=== PATIENT | male | born 1960 ===

== ENCOUNTER 2017-07-14 20:12 | Emergency (ER) | payer OTHER, BC ==
[2017-07-14 20:32] VITALS: BP 150/80; PULSE 79; RESP 18; TEMP 98.4; O2SAT 98
--- NOTE | 2017-07-14 20:46 | ED PDOC ---
HPI: Back Time Seen by Provider: 07/14/17 20:34 Chief Complaint (Nursing): Back Pain Chief Complaint (Provider): Low back pain History Per: Patient History/Exam Limitations: no limitations Onset/Duration Of Symptoms: Hrs Current Symptoms Are (Timing): Still Present Quality Of Discomfort: "Pain" Previous Symptoms: Chronic Pain, Prior Surgery Additional History Per: Patient Additional Complaint(s): 56yo male, with history of back problems, back surgeries and kidney stones, presents to ER for evaluation of right sided lower back pain after he injured himself while using a machine at work today. Patient states he has been taking Tylenol with no relief of symptoms. He states the pain intermittently radiates down his right leg as well. He denies any weakness, numbness, bowel or bladder dysfunction. No other complaints. Past Medical History Reviewed: Historical Data, Nursing Documentation, Vital Signs Vital Signs: Last Vital Signs Temp 98.4 F 07/14/17 20:30 Pulse 79 07/14/17 20:30 Resp 18 07/14/17 20:30 BP 150/80 07/14/17 20:30 Pulse Ox 98 07/14/17 20:30 - Medical History PMH: Back Problems - Surgical History Other surgeries: back surgery - Family History Family History: States: No Known Family Hx - Social History Current smoker - smoking cessation education provided: Yes Alcohol: Occasional Drugs: Denies - Home Medications Home Medications: Ambulatory Orders Medication Instructions Recorded Cyclobenzaprine [Cyclobenzaprine 10 mg PO TID PRN #20 tab 07/14/17 HCl] Naproxen [Naprosyn] 500 mg PO BID #20 tab 07/14/17 - Allergies Allergies/Adverse Reactions: Allergies Allergy/AdvReac Type Severity Reaction Status Date / Time No Known Allergies Allergy Verified 07/14/17 20:28 Review of Systems ROS Statement: Except As Marked, All Systems Reviewed And Found Negative Genitourinary Male: Negative for: Dysuria, Incontinence Musculoskeletal: Positive for: Back Pain (right lower back), Leg Pain ( intermittent episodes) Neurological: Negative for: Weakness, Numbness Physical Exam - Reviewed Nursing Documentation Reviewed: Yes Vital Signs Reviewed: Yes - Physical Exam Appears: Positive for: Non-toxic, No Acute Distress Head Exam: Positive for: ATRAUMATIC, NORMAL INSPECTION, NORMOCEPHALIC Skin: Positive for: Normal Color Eye Exam: Positive for: Normal appearance Neck: Positive for: Supple Cardiovascular/Chest: Positive for: Regular Rate, Rhythm. Negative for: Murmur Respiratory: Positive for: Normal Breath Sounds. Negative for: Respiratory Distress Back: Positive for: Muscle Spasm (right lower back), Other (right paralumbar tenderness). Negative for: L CVA Tenderness, R CVA Tenderness Extremity: Positive for: Normal ROM Neurologic/Psych: Positive for: Alert, Oriented. Negative for: Motor/Sensory Deficits - ECG O2 Sat by Pulse Oximetry: 98 (RA) Pulse Ox Interpretation: Normal - Other Rad L/S Spine x-ray X-Ray: Interpreted by Me, Viewed By Me X-Ray Interpretation: no fx, no dis, arthritic changes Medical Decision Making Medical Decision Making: Impression: Back pain s/p injury Plan: -- Flexeril 10 mg PO -- XR Lumbar Spine -- Tylenol 975 mg PO -- Tordaol 30 mg IM Patient feels better after meds given in ED. Will d/c with rx flexeril and naprosyn. Patient was referred to ortho precision lens technician for follow up. Scribe Attestation: Documented by Patricia Guthrie acting as a scribe for RADHA Brown Provider Attestation: All medical record entries made by the Scribe were at my direction and personally dictated by me. I have reviewed the chart and agree that the record accurately reflects my personal performance of the history, physical exam, medical decision making, and the department course for this patient. I have also personally directed, reviewed, and agree with the discharge instructions and disposition. Disposition - Clinical Impression Clinical Impression: Back strain - Patient ED Disposition Is Patient to be Admitted: No Counseled Patient/Family Regarding: Studies Performed, Diagnosis, Need For Followup, Rx Given - Disposition Referrals: Rama Elkins MD [Staff Provider] - Disposition: Routine/Home Disposition Time: 21:32 Condition: STABLE Additional Instructions: TAKE RX MEDS DIRECTED NEEDED FOR PAIN FOLLOW UP WITH ORTHOPEDIST IN 2-3 DAYS. Prescriptions: Cyclobenzaprine [Cyclobenzaprine HCl] 10 mg PO TID PRN #20 tab PRN Reason: Muscle Spasm Naproxen [Naprosyn] 500 mg PO BID #20 tab Instructions: Low Back Pain (DC), Muscle Strain (DC), Back Exercises Forms: [facility] (Gu[place]ian), [facility] School/Work Excuse Print Language: CUBAN
--- NOTE | 2017-07-15 09:58 | RAD ---
PROCEDURE: Radiographs of the Lumbar Spine. HISTORY: trauma COMPARISON: No prior. FINDINGS: BONES: Normal alignment. No listhesis. No fracture. Anterior endplate osteophytic changes. DISC SPACES: Multilevel disc space narrowing. OTHER FINDINGS: Large staghorn left renal calculus. Adjacent small right lower pole renal calculi. IMPRESSION: No acute fracture. Multilevel degenerative changes. Bilateral nephrolithiasis, including large left staghorn calculus.
== END 2017-07-14 22:12 | disposition home or self-care (01) ==
LOC: H.ER 20:12
DX: S39.012A Strain of muscle, fascia and tendon of lower back, initial encounter (principal); X50.9XXA Other and unspecified overexertion or strenuous movements or postures, initial encounter; Y99.0 Civilian activity done for income or pay; Z87.442 Personal history of urinary calculi
CPT/HCPCS: 72100; 96372; 99281; J1885